=== PATIENT | female | born 1950 | race Caucasian/White ===

== ENCOUNTER 2023-11-02 16:39 | Emergency (ER) | payer BC, MEDICAID ==
[~2023-11-02] VITALS: Ht 160 cm; Wt 68.0 kg
[2023-11-02 17:18] VITALS: BP_SYST 131; PULSE 73; RESP 18; TEMP 98.3; O2SAT 96
== END 2023-11-02 23:02 | disposition left against medical advice (07) ==
LOC: SED 16:39
DX: M25.562 Pain in left knee (principal); M25.572 Pain in left ankle and joints of left foot; Z53.21 Procedure and treatment not carried out due to patient leaving prior to being seen by health care provider
CPT/HCPCS: 73564